=== PATIENT | female | born 1965 | race Caucasian/White ===

== ENCOUNTER → 2018-01-22 | Outpatient (CLI) | payer BC ==
--- NOTE | 2018-01-22 16:54 | KCIC ---
Bilateral digital screening mammograms: Reason for examination: Routine screening. Comparison is made to previous studies dated 12/09/2015 and 10/07/2014. Interpretation was made with the benefit of CAD. The skin and nipples show no abnormalities. No abnormal axillary lymph nodes are seen. The breast parenchyma is heterogeneously dense. (Breast density: Category C.) There are no dominant masses, suspicious calcifications or architectural distortion. Impression: No evidence of malignancy. Recommend routine screening. Your patient's mammogram demonstrates that she has dense breast tissue (breast density category C or D), which could hide abnormalities, and if she has other risk factors for breast cancer that have been identified, she might benefit from supplemental screening tests that may be suggested by you as her ordering physician. Dense breast tissue, in and of itself, is a relatively common condition. Therefore, this information is not provided to cause undue concern, but rather to raise your awareness and to promote discussion with your patient regarding the presence of other risk factors, in addition to dense breast tissue. Your patient's mammography results will be sent to her. BI-RAD Category 1: Negative. "Our facility is accredited by the [employer] Mammography [employer]." This patient's information has been entered into a reminder system for the patient to be notified with the results of her examination and a target date for the next mammogram. Electronically signed by: Jessica Balbuena MD (01/22/2018 4:50 PM) [id number]
== END | disposition home or self-care (01) ==
LOC: KCIC MAMMO 11:13
PROVIDERS: ATTEND Obstetrics & Gynecology
DX: Z12.31 Encounter for screening mammogram for malignant neoplasm of breast (principal)
CPT/HCPCS: 77067

== ENCOUNTER → 2019-02-15 | Day surgery (SDC) | payer BC ==
[~2019-02-15] MED LIST: AMLO5TAB10 PO; CRESTOR20 MG PO; GLIM4TAB2 PO; IV RINGERS,LACTATED 1000ML 1,000 ML IV SCH; LEVO200T5 PO; LIDOCAINE 2% PF 5 ML VIAL. ONE; LINA5TAB PO; LISI1TAB23 PO; PROPOFOL 40 ML IV ONE; SERT100T PO
[2019-02-15 08:40] VITALS: BP 115/68
--- NOTE | 2019-02-19 18:06 | PATHOLOGY ---
[facility] Accession Number: [id number] . 01 Material submitted: . colon - TRANSVERSE COLON POLYP. Modifiers: transverse . 01 Clinical history: . Pre-OP DX: Screening Post-OP DX: Polyp . 02 Diagnosis: Colon biopsies, transverse colon polyp: - Consistent with hyperplastic polyp/prominent mucosal fold, with few mucosal-associated lymphoid aggregates. (JPM:rosio; 02/19/2019) QMS/02/19/2019 . 02 Comment: There are no adenomatous changes or evidence of malignancy. (JPM:rosio; 02/19/2019) . 02 Electronically signed: . Pavel Mccartney MD, Pathologist NPI- [id number] . 01 Gross description: . Received in formalin labeled "Ayanna Cornejo, transverse colon polyp," are 2 segments of rueda soft tissue measuring 0.9 x 0.2 x 0.2 cm in aggregate dimensions and ranging from 0.4 to 0.5 cm in maximum dimension. The specimen is submitted entirely in cassette A1. (TSD; 02/15/2019) TOB/TOB . 02 Pathologist provided ICD-10: K63.5 . 02 CPT . 410984 Specimen Comment: A courtesy copy of this report has been sent to Specimen Comment: [phone], . Specimen Comment: Report sent to / DR RAMACHANDRAN Performed at: 01 [facility] [address] [facility] [address], [place] [id number] MD Carroll Jackson MD Phone: [phone] Performed at: 02 [facility] [address] [place], [place] [id number] MD Pavel Mccartney MD Phone: [phone]
== END ==
LOC: ENDOS 06:36
PROVIDERS: ATTEND Internal Medicine Gastroenterology
DX: Z12.11 Encounter for screening for malignant neoplasm of colon (principal); K63.5 Polyp of colon; K64.0 First degree hemorrhoids; F32.9 Major depressive disorder, single episode, unspecified; E11.9 Type 2 diabetes mellitus without complications; E78.00 Pure hypercholesterolemia, unspecified; F15.90 Other stimulant use, unspecified, uncomplicated; E03.9 Hypothyroidism, unspecified; Z72.89 Other problems related to lifestyle; Z88.0 Allergy status to penicillin; Z90.710 Acquired absence of both cervix and uterus; Z98.890 Other specified postprocedural states; Z79.84 Long term (current) use of oral hypoglycemic drugs
CPT/HCPCS: 45380; 88305; J2001; J2704